=== PATIENT | female | born 2000 | race Caucasian/White ===

== ENCOUNTER 2020-01-18 12:42 | Emergency (ER) | payer BC, OTHER ==
[2020-01-18] MEDS ORDERED: Bacitracin 1 PK ONE ×2 (13:11→13:35)
--- NOTE | 2020-01-18 13:18 | CT ---
Exam: CT brain PROVIDED CLINICAL HISTORY: Trauma COMPARISON: None FINDINGS: The ventricular system is normal in size and morphology. No evidence for intracranial hemorrhage or mass effect. The extracranial soft tissues and osseous structures demonstrate no evidence for an acute abnormality. IMPRESSION: No evidence for intracranial hemorrhage or mass effect.
--- NOTE | 2020-01-18 13:27 | CT ---
EXAM: CT cervical spine PROVIDED CLINICAL HISTORY: Trauma COMPARISON: None FINDINGS: No evidence for fracture or traumatic subluxation. No prevertebral soft tissue swelling apparent. Vi sualized lung apices appear clear. IMPRESSION: No evidence for fracture or traumatic subluxation.
[2020-01-18] MEDS ORDERED: Lidocaine 1% w/Epinephrine 1:100K 30 ML VIAL ONE (13:35)
--- NOTE | 2020-01-18 13:36 | RAD ---
EXAM: XR Wrist 3 Lt View STANDARD PROVIDED CLINICAL HISTORY: Pain status post injury COMPARISON: None FINDINGS: Comminuted distal radial metaphyseal region fracture is demonstrated with probable intra-articular ex tension and without significant displacement. No additional fracture is evident. Joint spaces appear preserved. IMPRESSION: Distal radial fracture as described.
[2020-01-18] MEDS ORDERED: Adacel (T-DAP) 0.5 ML SYRINGE ONE (13:47)
== END 2020-01-18 14:25 | disposition home or self-care (01) ==
LOC: NAV ERS 12:42
DX: S59.202A Unspecified physeal fracture of lower end of radius, left arm, initial encounter for closed fracture (principal); S01.01XA Laceration without foreign body of scalp, initial encounter; S50.811A Abrasion of right forearm, initial encounter; Z23 Encounter for immunization; V43.62XA Car passenger injured in collision with other type car in traffic accident, initial encounter
CPT/HCPCS: 12002; 29125; 70450; 72125; 90471; 90715; J2001